=== PATIENT | female | born 1940 | race Caucasian/White ===

== ENCOUNTER 2017-01-03 09:50 | Inpatient (IN) | payer OTHER ==
--- NOTE | ~2017-01-03 | HP ---
History And Physical [place] [id number] [facility] [place]. [address] NAME: KOLTON KENYON : 42 STATUS : ADM IN LOCATED WITHIN [facility]#: [id number] AGE: 76 ADM/REG DATE : 01/03/17 MR#: [id number] REPORT SERV DATE: 01/03/17 DICTATED BY: DEMETRIS RAMOS DATE: 01/03/17 REPORT STATUS : Draft TRANSCRIBED BY: MODL DATE: 01/03/17 DATE OF ADMISSION: 01/03/2017 NEPHROLOGY HISTORY AND PHYSICAL INDICATION FOR ADMISSION: Hypoxemic hypercapnic respiratory failure. HISTORY OF PRESENT ILLNESS: Mrs. Kenyon is a 76-year-old female who was hospitalized at [facility] from 12/13/2016 through 01/02/2017. She presented with shortness of breath and peripheral edema and was found to have a large symptomatic pericardial effusion which required drainage. Her blood pressure remained somewhat low following the procedure and her kidney failure worsened from stage IV until she was declared end-stage renal disease. She was at dialysis at [facility] for her initial treatment on 01/03/2017, when she noted worsening shortness of breath and complained of chest discomfort. She had about 1 hour and 40 minutes of treatment and was sent to the emergency room at [facility]. Chest x-ray revealed what appeared to be consistent with pulmonary edema. Her white cell count was 19.1. Her ABG on blood gas revealed a pCO2 of 52, PO2 of 51, and pH of 7.32 on 2 L. She was subsequently placed on BiPAP and was transported to dialysis for more aggressive ultrafiltration. She denied any fever or chills at home. She did have a nonproductive cough. She reported only chest pain at the time of her dialysis and stated that the symptoms were fairly acute. Her troponin level was 0.09. Her BNP was 2222. Her lactate level was 1.2. PAST MEDICAL HISTORY: End-stage renal disease, newly initiated on an outpatient dialysis at [facility] on Monday, , Monday via right IJ PermCath. Recent pericardial effusion requiring drainage on 12/17/2016. Dysphagia requiring PEG tube placement on 12/27/2016. Mild aortic stenosis. Peripheral vascular disease with prior mesenteric stenting. Depression, type 2 diabetes mellitus, hypertension, hyperlipidemia, anxiety disorder, irritable bowel syndrome, fatty liver, peptic ulcer disease, and anemia. SOCIAL HISTORY: A 20-to-25 pack year smoking history. No use for many years. No alcohol or illicit drug use. 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 She has a supportive family. FAMILY HISTORY: Positive for gastrointestinal issues including peptic ulcer disease and irritable bowel syndrome. No end-stage renal disease. ALLERGIES: CODEINE; INAPSINE; COMPAZINE; REGLAN; PROTONIX; PRILOSEC; PREVACID; TAGAMET; MORPHINE; CIPROFLOXACIN; AND FLAGYL. HOME MEDICATIONS: Tylenol; Xanax; Artificial Tears; enteric-coated aspirin; Tenormin; Ziac; vitamin B12; enalapril; metformin; Nitrostat; Axid; omeprazole; Phenergan; Florastor; and tramadol. PAST SURGICAL HISTORY: Hysterectomy, bilateral oophorectomy, , appendectomy, and pericardial effusion requiring drainage. History And Physical [address] [place]. [address] NAME: KOLTON KENYON : 42 STATUS : ADM IN LOCATED WITHIN [facility]#: [id number] AGE: 76 ADM/REG DATE : 01/03/17 MR#: [id number] REPORT SERV DATE: 01/03/17 DICTATED BY: DEMETRIS RAMOS DATE: 01/03/17 REPORT STATUS : Draft TRANSCRIBED BY: MARK DATE: 01/03/17 REVIEW OF SYSTEMS: HEENT: No change in visual acuity. No epistaxis. No otic infection. No hemoptysis. PULMONARY: No shortness of breath. Dry cough. CARDIAC: Substernal chest pain. No edema. GI: No dysphagia. Presently fed by a PEG tube. No nausea, vomiting, or melena. : No gross hematuria. MUSCULOSKELETAL: Generalized weakness. No lateralizing weakness. Notes some pain in back. INTEGUMENT: No rash. No skin lesions. No itching. PHYSICAL EXAMINATION: VITAL SIGNS: Blood pressure 147/66, temperature 97.8, pulse 73, and respiratory rate 20. GENERAL: Elderly white female, on BiPAP, somewhat anxious. HEENT: Eyes, no scleral icterus. Pupils equal, reactive to light. Extraocular movement intact. Nares patent. No lesions. Throat, no injection. Mucous membranes moist. NECK: No thyromegaly, masses, or bruits. CHEST/LUNGS: Bilateral crackles. A few scattered wheezes. CARDIAC: Regular rate and rhythm. A 1/6 systolic ejection murmur. No rub. ABDOMEN: Supple. Normoactive bowel sounds. PEG tube in place. No hepatosplenomegaly. No masses. BREASTS: Exam not performed. PELVIC: Exam not performed. RECTAL: Exam not performed. EXTREMITIES: No calf tenderness. No lower extremity edema. DERMIS: No rash. No skin lesions. NEUROLOGIC: Cranial nerves intact. Moves all extremities. No lateralizing weakness. MUSCULOSKELETAL: No deformity. No joint tenderness. IMPRESSION: 1. Pulmonary edema with hypoxemic hypercapnic respiratory failure. 2. Chest pain. Evaluate for cardiac source. 3. New ESRD, to dialyze Monday, , and Monday at [facility] by right IJ PermCath. 4. Recent pericardial effusion, status post drainage. 5. Dysphagia status post PEG with PEG tube feedings. 6. Mild aortic stenosis. 7. Peripheral vascular disease, status post mesenteric stent. 8. Type 2 diabetes mellitus. 9. Anemia. PLAN: 1. Urgent dialysis. 2. Labs. 3. Pulmonary evaluation to assist with BiPAP. /MODL History And Physical [address] [address] NAME: KOLTON KENYON : 42 STATUS : ADM IN LOCATED WITHIN [facility]#: [id number] AGE: 76 ADM/REG DATE : 01/03/17 MR#: [id number] REPORT SERV DATE: 01/03/17 DICTATED BY: DEMETRIS RAMOS DATE: 01/03/17 REPORT STATUS : Draft TRANSCRIBED BY: MARK DATE: 01/03/17 Demetris Ramos M.D. / [id number] CC: Demetris Ramos M.D.
--- NOTE | ~2017-01-03 | CN ---
Consultation Report [facility] [address] [place]. [address] NAME: KOLTON KENYON : 42 STATUS : ADM IN PAT#: [id number] AGE: 76 ADM/REG DATE : 01/03/17 MR#: [id number] REPORT SERV DATE: 01/07/17 DICTATED BY: YARED TREADWELL DATE: 01/07/17 REPORT STATUS : Draft TRANSCRIBED BY: MODGary DATE: 01/07/17 DATE OF CONSULTATION: 01/07/2017 PRIMARY CHILD CARE DIRECTOR: None. REASON FOR CONSULTATION: N-STEMI. HISTORY OF PRESENT ILLNESS: Ms Kenyon is a 76-year-old female with a history of newly- diagnosed end-stage renal disease, on dialysis, mild aortic stenosis, mild biventricular systolic failure, diabetes, depression, hypertension, hyperlipidemia, and recent pericardial effusion that is status post a window, who presented to [facility] on January 03 with worsening shortness of breath, as well as chest discomfort. She experienced these symptoms during dialysis on 01/03. She was admitted here and during the interval time, has been getting dialysis, as well as optimized from a volume standpoint. Today during her dialysis session, she had recurrence of chest pain, as well as neck pain that was significant in intensity. Enzymes that were checked showed increase in her troponin from 0.09 up to 1.8. EKG at that time shows sinus bradycardia, LVH with repolarization changes and EKG from admission shows sinus rhythm with septal Q-waves, as well as probable ischemic anterolateral ST changes. PAST MEDICAL HISTORY: As above, as well as including peripheral vascular disease, status post mesenteric stenting, peptic ulcer disease, anemia, irritable bowel syndrome, anxiety, and dysphagia with a PEG tube. ALLERGIES: INCLUDE CODEINE, COMPAZINE, INAPSINE, REGLAN, PROTONIX, PREVACID, TAGAMET, MORPHINE, CIPRO, AND FLAGYL. FAMILY HISTORY: Significant for heart disease in her mother's family, details unknown. SOCIAL HISTORY: The patient lives at home with family. She is dependent on them. She has a history of smoking, but not currently. Denies drinking alcohol or smoking. HOME MEDICATIONS: 1. Tylenol. 2. Xanax. 3. Aspirin. 4. Atenolol. 5. Bisoprolol. 6. Vitamin B12. 7. Enalapril. 8. Metformin. 9. Nitroglycerin. 10.Axid. 11.Prilosec. 12.Phenergan. Consultation Report [place] [address] [place]. [address] NAME: KOLTON KENYON : 42 STATUS : ADM IN PAT#: [id number] AGE: 76 ADM/REG DATE : 01/03/17 MR#: [id number] REPORT SERV DATE: 01/07/17 DICTATED BY: YARED TREADWELL DATE: 01/07/17 REPORT STATUS : Draft TRANSCRIBED BY: MARK DATE: 01/07/17 13.Nasal spray. REVIEW OF SYSTEMS: As above, all other systems otherwise negative. PHYSICAL EXAMINATION: VITAL SIGNS: Blood pressure 115/48, pulse 44, temperature 97.6. GENERAL: No acute distress, age appropriate. NEURO: No focal deficits. Oriented x3. Lucid. HEAD AND NECK: Normocephalic, atraumatic. Dry mucous membranes. RESPIRATORY: Normal work of breathing. Positive for rales bilaterally. No wheezes or rhonchi. CARDIAC: Bradycardic. Regular. Normal S1, S2. 3/6 systolic murmur throughout the precordium. ABDOMEN: Soft, nontender, nondistended. No rebound or guarding. EXTREMITIES: Warm and dry. No edema. SKIN: Grossly intact. No obvious active rash. LABORATORY DATA: Pertinent test findings include potassium 3.9. GFR 13. White blood cell count 9.5, hemoglobin 9.6. Troponin 0.09 from 01/03 and now 1.83. Magnesium 2.5. EKG with sinus bradycardia, LVH, repolarization abnormalities, and Q-waves in the septal leads. IMPRESSION AND PLAN: Ms Kenyon is a 76-year-old female with many comorbidities including end-stage renal disease, on hemodialysis and peripheral vascular disease, status post mesenteric stent, as well as diabetes, hypertension, and hyperlipidemia, who had recurrent chest and neck pains during dialysis today, found to have an increase in her cardiac enzymes, as result of non-ST elevation myocardial infarction. Accordingly, I have the following recommendations by problem below: 1. N-ST elevation myocardial infarction-I spoke with her at length regarding my recommendations to proceed with cardiac catheterization with possible percutaneous coronary intervention in light of her electrocardiographic findings, as well as her cardiac enzymes and symptoms. Understanding the risks of not proceeding with an invasive strategy, including but not limited to, worsening heart failure, myocardial infarction, , stroke, or arrhythmia, she has decided to not pursue invasive strategy. She has indicated that she does not want to have a cardiac catheterization at this time. She would like to be medically managed only. Accordingly, I recommend that she be continued on aspirin, statin, starting on Plavix if possible, and maintain on a heparin drip with renal dosing over the next two days. She has baseline bradycardia that may be a result of residual beta-mario in her system (atenolol), currently precluding further beta-mario therapy. Check an echocardiogram on Monday. 2. Peripheral vascular disease, status post mesenteric stenting-aspirin and statin as written. 3. End-stage renal disease, on hemodialysis-per Renal. Stable. Consultation Report [place] [id number] [facility] [place]. [address] NAME: KOLTON KENYON : 42 STATUS : ADM IN PAT#: [id number] AGE: 76 ADM/REG DATE : 01/03/17 MR#: [id number] REPORT SERV DATE: 01/07/17 DICTATED BY: YARED TREADWELL DATE: 01/07/17 REPORT STATUS : Draft TRANSCRIBED BY: MARK DATE: 01/07/17 4. Hypertension-controlled. VR/MARK Yraed Treadwell MD / [id number] CC: Pranav Beth M.D.
--- NOTE | ~2017-01-03 | DS ---
Discharge Summary [facility] [address] [place]. [address] NAME: KOLTON MORRIS : 42 STATUS : DIS IN PAT#: [id number] AGE: 76 ADM/REG DATE : 01/03/17 MR#: [id number] REPORT SERV DATE: 01/20/17 DICTATED BY: DEMETRIS RAMSO DATE: 01/19/17 REPORT STATUS : Draft TRANSCRIBED BY: MARK DATE: 01/19/17 Data Collection from hospitalization DISCHARGE DIAGNOSES: 1. Inoperable mitral valve coronary artery disease. 2. Gna-SS-ppwikodzo myocardial infarction. 3. End-stage renal disease. 4. Type 2 diabetes mellitus. 5. Peripheral vascular disease. 6. Hypertension. 7. Anemia. 8. Anxiety disorder. 9. Irritable bowel syndrome. 10.Fatty liver. 11.Peptic ulcer disease. 12.Hyperlipidemia. 13.Depression. CONSULTATIONS: Yared Mcgee MD. PROCEDURES PERFORMED: Cardiac catheterization, 01/13/2017. DISCHARGE MEDICATIONS: Nitrol ointment one inch topically every six hours as needed, Zofran injection 4 mg IV every four hours as needed, Catapres 0.1 mg as needed, Dilaudid 0.2 mg IV/subcutaneously as instructed, Ativan 0.5 mg every six hours and every four hours as needed, Lasix 20 mg IV/subcutaneously daily as needed for fluid overload, and Dulcolax 10 mg per rectum every 72 hours as needed for no bowel movement. CONDITION ON DISCHARGE: Stable. DISPOSITION: The patient was discharged to the [facility] facility. HOSPITAL COURSE: This is a 76-year-old female, who had been hospitalized at [facility] from 12/13/2016 through 01/02/2017. She presented with shortness of breath and peripheral edema, was found to have a large symptomatic pericardial effusion which required drainage. Her blood pressure remained somewhat low following the procedure, and her kidney failure worsened from stage IV until she was declared end-stage renal disease. She was at dialysis at [facility] for her initial treatment on 01/03/2017 when she developed worsening shortness of breath and complained of chest discomfort. She had about 1 hour and 40 minutes of treatment and was sent to the emergency room at [facility]. Chest x-ray revealed what appeared to be consistent with pulmonary edema. White blood cell count was 19.1. She was placed on BiPAP and transported to dialysis for more aggressive ultrafiltration. Her troponin level was 0.09. BNP was 2222. She had a nonproductive cough. Her lactate level was 1.2. She was admitted to the hospital for further evaluation and treatment. Upon admission, urgent dialysis therapy was performed. The following day, she was alert and responsive, her breathing was much improved. On 01/05/2017, her breathing was comfortable. Her white count was 8.8. She was transferred to the floor. Hemodialysis therapy continued. Discharge Summary [place] [id number] [facility] [place]. [address] NAME: KOLTON MORRIS : 42 STATUS : DIS IN PAT#: [id number] AGE: 76 ADM/REG DATE : 01/03/17 MR#: [id number] REPORT SERV DATE: 01/20/17 DICTATED BY: DEMETRIS RAMOS DATE: 01/19/17 REPORT STATUS : Draft TRANSCRIBED BY: MARK DATE: 01/19/17 On the 3rd, she had no edema, her abdomen was soft and nontender. She had good pain control. She had a normal respiratory effort. She was evaluated by Physical Therapy. On the 4th, she developed chest pain during hemodialysis, troponin had increased from 0.09 to 1.83. She was seen by Dr. Yared Mcgee regarding pbc-OM-btxfesewp myocardial infarction. She has had recurrence of chest pain during dialysis as well as neck pain that was significant in intensity. Enzymes were checked and showed increase in her troponin from 0.09 up to 1.8. Her EKG showed sinus bradycardia, left ventricular hypertrophy with repolarization changes, and EKG from admission shows sinus rhythm with septal Q-waves as well as probable ischemic anterolateral ST changes. She was felt to have had a non-ST- elevation myocardial infarction, it was felt that she should undergo a cardiac catheterization. She indicated she did not want a cardiac catheterization at this time and wanted to be medically managed. Accordingly, he recommended that she be continued on aspirin, statin, and started on Plavix if possible and maintain on heparin drip with renal dosing over the next few days. She has baseline bradycardia that may be a result of residual beta-mario in her system which was atenolol which currently precluded further beta-mario therapy. An echocardiogram was requested. She has peripheral vascular disease and is status post mesenteric stenting, aspirin and statin agents were continued, her blood pressure was controlled. On 01/08/2017, she had no chest pain, nausea, or vomiting. Her enzymes were trending down. She was still on a heparin drip, blood pressure was controlled. The next day, she had some nausea, she had no dizziness or lightheadedness, heparin was discontinued. She did complain of some reflux. Occupational and Physical Therapy again evaluated the patient. She continued to undergo hemodialysis therapy over the next couple of days. On the , she had some chest pain and she complained of being tired. Troponin was still elevated. If she was having cardiac events with hemodialysis, she would not be a hemodialysis candidate unless something fixable. She would not agree to cardiac catheterization at this time. Palliative care was going to be consulted. The following day, she again had recurrent angina with hemodialysis, she now wanted to proceed with cardiac catheterization. On 01/13/2017, she was taken to the cardiac laborer [facility] where she underwent the above-mentioned procedure by Dr. Mills, she tolerated this well, and there were no complications. She had severe calcific multi-vessel coronary artery disease not amenable to percutaneous coronary intervention. 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 She had volume overload with left ventricular end-diastolic pressure of 26 to 28 mmHg. It was felt that hospice/palliative care would be appropriate. She remained lethargic. She is a DNR code status. No further hemodialysis therapy would be performed. A [facility] liaison met with the patient and reviewed hospice care. The patient was in agreement with comfort care at this time. Discharge instructions were given, and the patient was transferred to the [facility] with the above-stated instructions. Information collected by: Lucy Swanson I submit the above information as my discharge summary. TG/MODL Discharge Summary [place] [address] [facility] [place]. [address] NAME: KOLTON MORRIS : 42 STATUS : DIS IN PAT#: [id number] AGE: 76 ADM/REG DATE : 01/03/17 MR#: [id number] REPORT SERV DATE: 01/20/17 DICTATED BY: DEMETRIS RAMOS DATE: 01/19/17 REPORT STATUS : Draft TRANSCRIBED BY: MODL DATE: 01/19/17 Demetris Ramos M.D. / [id number] CC: Andie Koehler M.D. Bruce Johnson, M.D. Vimal Ramjee, MD
[~2017-01-03 09:50] MED LIST: ACET500CAP PO; ANASPAZ0.125 MG PO; ATEN100 PO; AXID150 MG PO; B121000P IM; GLUCPH PO; HALF81 PO; JANUMET XR 1001 EACH PO; MCZ25 PO; MYLUD PO; NEXIUM40 PO; NITROSTAT0.4 MG SL; NIZATIDINE PO; NORV10 PO; OCEAN NAS; PEPTO-BISM524 MG/30 PO; PR25 PO; PRILO PO; PRILOSEC40 MG PO; SYMAX-SR0.375 MG; TEARS NATURA OPH; TEARS PLUS OPH; ULTRAM50 PO; VASOTEC10 PO; X5 PO; ZIAC2 PO
[2017-01-03 10:08] LABS: BE (BASE EXCESS) 0.1 MEQ/L (0 +/- 2.5); CARBOXYHEMOGLOBIN 1.1 % (0-3); DEVICE NC; HCO3 (ACTUAL BICARBONATE) 26.7 MEQ/L (23-27); INSTRUMENT SERIAL # 8087; METHEMOGLOBIN 0.4 % (0-3); O2 CONTENT 12.5 VOL% (18-24); OPERATOR ID 35188; PCO2 (CO2 TENSION) 52 MMHG (35-45); PO2 (O2 TENSION) 51 MMHG (79-93); SAMPLE Arterial; pH 7.33 (7.37-7.43)
[2017-01-03 10:09] LABS: ALLENS TEST Pos
[2017-01-03 10:33] LABS: BASOPHILS 0.4 %; BASOPHILS ABSOLUTE 0.08 10/3/uL (0.0-0.16); EOSINOPHILS 1.4 %; EOSINOPHILS ABSOLUTE 0.26 10/3/uL (0.0-0.53); HEMOGLOBIN 9.7 g/dL (12.0-16.0); IMMATURE GRANULOCYTES 1.5 %; LYMPHOCYTES 8.6 %; LYMPHOCYTES ABSOLUTE 1.64 10/3/uL (0.67-4.30); MEAN CORPUS HGB CONC 31.2 g/dL (32.0-36.0); MEAN CORPUSCULAR VOLUME 76.8 fL (80-100); MEAN PLATELET VOLUME 10.9 fL (9.2-13.0); MONOCYTES 4.2 %; NEUTROPHILS 83.9 %; NEUTROPHILS ABSOLUTE 16.01 10/3/uL (2.02-8.40); RBC DISTRIBUTION WIDTH 17.2 % (12.0-16.0); RED CELL COUNT 4.05 10/6/uL (4.0-5.6)
[2017-01-03 10:34] LABS: ER CBC TAT 0 Hrs 15 Mins; HEMATOCRIT 31.1 % (36.0-48.0); IMMATURE GRANULOCYTES ABSOLUTE 0.29 10/3/uL (0.0-0.11); MANUAL DIFF NO %; PLATELET COUNT 328 10/3/uL (150-400); WHITE BLOOD CELLS 19.1 10/3/uL (4.5-10.5)
[2017-01-03 10:39] LABS: INTERNATIONAL NORMAL RATI 1.2 UNITS (-); PROTIME (NOT ORD) 15.5 SEC (12.0-14.5)
[2017-01-03 10:40] LABS: PARTIAL THROMBO TIME 29.6 SEC (22.5-37.2)
[2017-01-03 10:41] LABS: BUN (BLOOD UREA NITROGEN) 34 MG/DL (6-23); CALCIUM, SERUM 8.8 MG/DL (8.5-10.4); CHLORIDE, SERUM 97 MMOL/L (96-112); CO2 (CARBON DIOXIDE) 27 MMOL/L (24-34); CREATININE 2.82 MG/DL (0.55-1.02); GFR AFRICAN AMERICAN 18 ML/MIN (>=60); GFR NON AFRICAN AMERICAN 16 ML/MIN (>=60); GLUCOSE, SERUM 187 MG/DL (60-99); POTASSIUM, SERUM 4.3 MMOL/L (3.5-5.3); SODIUM, SERUM 135 MMOL/L (135-148)
[2017-01-03 10:42] LABS: CHEST PAIN PROFILE TAT 0 Hrs 23 Mins; TROPONIN I 0.09 NG/ML (<0.05)
[2017-01-03 10:58] LABS: ANISOCYTOSIS 1+ (5-10/OIF) (0-5/OIF); BAND NEUTROPHILS 7 %; BASOPHILS 1 %; BASOPHILS ABSOLUTE (CALC) 0.19 10/3/uL (0.0-0.16); EOSINOPHILS 2 %; EOSINOPHILS ABSOLUTE (CALC) 0.38 10/3/uL (0.0-0.53); ER DIFF TAT 0 Hrs 39 Mins; HYPOCHROMIA 1+ (3-10/OIF) (0-2/OIF); IMMATURE GRANS ABSOLUTE (CALC) 0.38 10/3/uL (0.0-0.11); LYMPHOCYTES 4 %; LYMPHOCYTES ABSOLUTE (CALC) 0.76 10/3/uL (0.67-4.30); METAMYELOCYTES 1 %; MICROCYTES 1+ (5-10/OIF) (0-5/OIF); MONOCYTES 4 %; MONOCYTES ABSOLUTE (CALC) 0.76 10/3/uL (0.21-1.20); MYELOCYTES 1 %; NEUTROPHILS ABSOLUTE (CALC) 16.62 10/3/uL (2.02-8.40); PLATELET ESTIMATE ADQ (ADEQUATE); SEGMENTED NEUTROPHIL (0) 80 %; TOTAL NUCLEATED CELLS 100
[2017-01-03 11:09] LABS: ALLENS TEST Pos; BE (BASE EXCESS) -0.1 MEQ/L (0 +/- 2.5); DEVICE NC; HCO3 (ACTUAL BICARBONATE) 27.3 MEQ/L (23-27); HEMOBLOGIN CONTENT 10.9 G/DL (12-16); INSTRUMENT SERIAL # 8087; METHEMOGLOBIN 0.4 % (0-3); O2 CONTENT 13.7 VOL% (18-24); OPERATOR ID 35188; PCO2 (CO2 TENSION) 58 MMHG (35-45); PO2 (O2 TENSION) 67 MMHG (79-93); SAMPLE Arterial; pH 7.29 (7.37-7.43)
[2017-01-03] MEDS ORDERED: ACET500CAP PO (12:09)
[2017-01-03] MEDS ORDERED: X5 PO (12:09)
[2017-01-03] MEDS ORDERED: ATEN100 PO (12:10)
[2017-01-03] MEDS ORDERED: HALF81 PO (12:10)
[2017-01-03] MEDS ORDERED: TEARS PLUS OPH (12:10)
[2017-01-03] MEDS ORDERED: ZIAC2 PO (12:11)
[2017-01-03] MEDS ORDERED: FLORASTOR250 MG PO (12:11)
[2017-01-03] MEDS ORDERED: GLUCPH PO (12:13)
[2017-01-03] MEDS ORDERED: NITROSTAT0.4 MG SL (12:13)
[2017-01-03] MEDS ORDERED: VASOTEC10 PO (12:13)
[2017-01-03] MEDS ORDERED: B121000P IM (12:13)
[2017-01-03] MEDS ORDERED: PR25 PO (12:14)
[2017-01-03] MEDS ORDERED: PRILOSEC40 MG PO (12:14)
[2017-01-03] MEDS ORDERED: ULTRAM50 PO (12:15)
[2017-01-03] MEDS ORDERED: OCEAN NAS (12:15)
[2017-01-03] MEDS ORDERED: AXID150 MG PO (12:16)
[2017-01-03 13:27] LABS: LACTATE 1.2 MMOL/L (0.3-2.4)
[2017-01-03 18:07] LABS: ALLENS TEST Pos; BIPAP 14/6 cm.H2O; CARBOXYHEMOGLOBIN 0.5 % (0-3); HCO3 (ACTUAL BICARBONATE) 26.7 MEQ/L (23-27); HEMOBLOGIN CONTENT 10.5 G/DL (12-16); INSTRUMENT SERIAL # 8083; METHEMOGLOBIN 0.3 % (0-3); O2 CONTENT 14.9 VOL% (18-24); PCO2 (CO2 TENSION) 42 MMHG (35-45); PO2 (O2 TENSION) 171 MMHG (79-93); SAMPLE Arterial; pH 7.42 (7.37-7.43)
[2017-01-04 05:47] LABS: BASOPHILS 0.8 %; BASOPHILS ABSOLUTE 0.08 10/3/uL (0.0-0.16); EOSINOPHILS 0.9 %; EOSINOPHILS ABSOLUTE 0.09 10/3/uL (0.0-0.53); HEMATOCRIT 28.6 % (36.0-48.0); HEMOGLOBIN 8.8 g/dL (12.0-16.0); IMMATURE GRANULOCYTES 1.1 %; IMMATURE GRANULOCYTES ABSOLUTE 0.11 10/3/uL (0.0-0.11); LYMPHOCYTES 15.8 %; LYMPHOCYTES ABSOLUTE 1.52 10/3/uL (0.67-4.30); MEAN CORPUS HGB CONC 30.8 g/dL (32.0-36.0); MEAN CORPUSCULAR HEMOGLOB 24.5 pg (26.0-34.0); MEAN PLATELET VOLUME 10.9 fL (9.2-13.0); MONOCYTES 8.2 %; MONOCYTES ABSOLUTE 0.79 10/3/uL (0.21-1.20); NEUTROPHILS 73.2 %; NEUTROPHILS ABSOLUTE 7.06 10/3/uL (2.02-8.40); PLATELET COUNT 251 10/3/uL (150-400); RED CELL COUNT 3.59 10/6/uL (4.0-5.6)
[2017-01-04 05:48] LABS: MANUAL DIFF NO %; MEAN CORPUSCULAR VOLUME 79.7 fL (80-100); WHITE BLOOD CELLS 9.7 10/3/uL (4.5-10.5)
[2017-01-04 06:09] LABS: BUN (BLOOD UREA NITROGEN) 31 MG/DL (6-23); CALCIUM, SERUM 8.6 MG/DL (8.5-10.4); CHLORIDE, SERUM 98 MMOL/L (96-112); CO2 (CARBON DIOXIDE) 27 MMOL/L (24-34); CREATININE 2.86 MG/DL (0.55-1.02); GFR AFRICAN AMERICAN 18 ML/MIN (>=60); GFR NON AFRICAN AMERICAN 15 ML/MIN (>=60); POTASSIUM, SERUM 4.5 MMOL/L (3.5-5.3); SODIUM, SERUM 135 MMOL/L (135-148)
[2017-01-04 06:12] LABS: ALBUMIN 3.5 G/DL (3.5-5.0); GLUCOSE, SERUM 113 MG/DL (60-99); PHOSPHORUS, SERUM 3.7 MG/DL (2.5-4.5)
[2017-01-04 06:50] LABS: PROCALCITONIN 1.63 ng/mL (<0.5)
[2017-01-04 11:14] LABS: A/G RATIO 0.8 (0.7-1.9); GLOBULIN 4.6 G/DL (2.5-4.1); PREALBUMIN 24.7 MG/DL (17.0-43.0); SGOT(AST) 46 U/L (5-40); SGPT(ALT) 34 U/L (5-65); TOTAL PROTEIN 8.1 G/DL (6.0-8.5)
[2017-01-04 11:18] LABS: ALKALINE PHOSPHATASE 87 U/L (45-117); TOTAL BILIRUBIN 0.6 MG/DL (0-1.2)
[2017-01-05 04:27] LABS: BASOPHILS 0.9 %; BASOPHILS ABSOLUTE 0.08 10/3/uL (0.0-0.16); EOSINOPHILS 2.2 %; EOSINOPHILS ABSOLUTE 0.19 10/3/uL (0.0-0.53); HEMATOCRIT 27.9 % (36.0-48.0); HEMOGLOBIN 8.6 g/dL (12.0-16.0); IMMATURE GRANULOCYTES 0.7 %; IMMATURE GRANULOCYTES ABSOLUTE 0.06 10/3/uL (0.0-0.11); LYMPHOCYTES 20.4 %; LYMPHOCYTES ABSOLUTE 1.79 10/3/uL (0.67-4.30); MEAN CORPUS HGB CONC 30.8 g/dL (32.0-36.0); MEAN CORPUSCULAR HEMOGLOB 24.1 pg (26.0-34.0); MEAN CORPUSCULAR VOLUME 78.2 fL (80-100); MEAN PLATELET VOLUME 10.9 fL (9.2-13.0); MONOCYTES 9.1 %; NEUTROPHILS 66.7 %; NEUTROPHILS ABSOLUTE 5.86 10/3/uL (2.02-8.40); PLATELET COUNT 271 10/3/uL (150-400); RBC DISTRIBUTION WIDTH 16.8 % (12.0-16.0); RED CELL COUNT 3.57 10/6/uL (4.0-5.6); WHITE BLOOD CELLS 8.8 10/3/uL (4.5-10.5)
[2017-01-05 04:37] LABS: MANUAL DIFF NO %
[2017-01-05 05:11] LABS: ALBUMIN 3.4 G/DL (3.5-5.0); BUN (BLOOD UREA NITROGEN) 58 MG/DL (6-23); CHLORIDE, SERUM 96 MMOL/L (96-112); CO2 (CARBON DIOXIDE) 25 MMOL/L (24-34); CREATININE 4.42 MG/DL (0.55-1.02); GFR AFRICAN AMERICAN 11 ML/MIN (>=60); GFR NON AFRICAN AMERICAN 9 ML/MIN (>=60); GLUCOSE, SERUM 116 MG/DL (60-99); PHOSPHORUS, SERUM 5.9 MG/DL (2.5-4.5); POTASSIUM, SERUM 4.9 MMOL/L (3.5-5.3); SODIUM, SERUM 132 MMOL/L (135-148)
[2017-01-06 06:27] LABS: BASOPHILS 0.6 %; BASOPHILS ABSOLUTE 0.06 10/3/uL (0.0-0.16); EOSINOPHILS 2.1 %; HEMATOCRIT 30.6 % (36.0-48.0); HEMOGLOBIN 9.6 g/dL (12.0-16.0); IMMATURE GRANULOCYTES 0.6 %; IMMATURE GRANULOCYTES ABSOLUTE 0.06 10/3/uL (0.0-0.11); LYMPHOCYTES 17.7 %; LYMPHOCYTES ABSOLUTE 1.68 10/3/uL (0.67-4.30); MEAN CORPUS HGB CONC 31.4 g/dL (32.0-36.0); MEAN CORPUSCULAR HEMOGLOB 24.7 pg (26.0-34.0); MEAN CORPUSCULAR VOLUME 78.9 fL (80-100); MEAN PLATELET VOLUME 10.8 fL (9.2-13.0); MONOCYTES 8.5 %; MONOCYTES ABSOLUTE 0.81 10/3/uL (0.21-1.20); NEUTROPHILS 70.5 %; PLATELET COUNT 252 10/3/uL (150-400); RBC DISTRIBUTION WIDTH 16.5 % (12.0-16.0); RED CELL COUNT 3.88 10/6/uL (4.0-5.6); WHITE BLOOD CELLS 9.5 10/3/uL (4.5-10.5)
[2017-01-06 06:31] LABS: MANUAL DIFF NO %
[2017-01-06 06:41] LABS: ALBUMIN 3.3 G/DL (3.5-5.0); BUN (BLOOD UREA NITROGEN) 46 MG/DL (6-23); CALCIUM, SERUM 8.8 MG/DL (8.5-10.4); CHLORIDE, SERUM 94 MMOL/L (96-112); CO2 (CARBON DIOXIDE) 26 MMOL/L (24-34); CREATININE 3.69 MG/DL (0.55-1.02); GFR AFRICAN AMERICAN 13 ML/MIN (>=60); GFR NON AFRICAN AMERICAN 11 ML/MIN (>=60); GLUCOSE, SERUM 129 MG/DL (60-99); PHOSPHORUS, SERUM 4.8 MG/DL (2.5-4.5); POTASSIUM, SERUM 3.9 MMOL/L (3.5-5.3); SODIUM, SERUM 134 MMOL/L (135-148)
[2017-01-07 09:00] LABS: BASOPHILS 0.5 %; BASOPHILS ABSOLUTE 0.05 10/3/uL (0.0-0.16); EOSINOPHILS 2.7 %; EOSINOPHILS ABSOLUTE 0.29 10/3/uL (0.0-0.53); HEMATOCRIT 29.8 % (36.0-48.0); HEMOGLOBIN 9.4 g/dL (12.0-16.0); IMMATURE GRANULOCYTES 0.4 %; IMMATURE GRANULOCYTES ABSOLUTE 0.04 10/3/uL (0.0-0.11); LYMPHOCYTES 16.6 %; MEAN CORPUS HGB CONC 31.5 g/dL (32.0-36.0); MEAN PLATELET VOLUME 10.7 fL (9.2-13.0); MONOCYTES 10.8 %; MONOCYTES ABSOLUTE 1.17 10/3/uL (0.21-1.20); NEUTROPHILS ABSOLUTE 7.51 10/3/uL (2.02-8.40); PLATELET COUNT 264 10/3/uL (150-400); RBC DISTRIBUTION WIDTH 16.5 % (12.0-16.0); RED CELL COUNT 3.91 10/6/uL (4.0-5.6); WHITE BLOOD CELLS 10.9 10/3/uL (4.5-10.5)
[2017-01-07 09:02] LABS: MANUAL DIFF NO %; MEAN CORPUSCULAR VOLUME 76.2 fL (80-100)
[2017-01-07 09:08] LABS: ALBUMIN 3.3 G/DL (3.5-5.0); CALCIUM, SERUM 8.6 MG/DL (8.5-10.4); CHLORIDE, SERUM 88 MMOL/L (96-112); CO2 (CARBON DIOXIDE) 26 MMOL/L (24-34); GLUCOSE, SERUM 136 MG/DL (60-99); POTASSIUM, SERUM 3.9 MMOL/L (3.5-5.3); SODIUM, SERUM 129 MMOL/L (135-148)
[2017-01-07 09:10] LABS: BUN (BLOOD UREA NITROGEN) 83 MG/DL (6-23); CREATININE 5.33 MG/DL (0.55-1.02); GFR AFRICAN AMERICAN 8 ML/MIN (>=60); GFR NON AFRICAN AMERICAN 7 ML/MIN (>=60); PHOSPHORUS, SERUM 5.9 MG/DL (2.5-4.5)
[2017-01-07 10:02] LABS: TROPONIN I 1.83 NG/ML (<0.05)
[2017-01-07 15:22] LABS: INTERNATIONAL NORMAL RATI 1.2 UNITS (-); PARTIAL THROMBO TIME 28.1 SEC (22.5-37.2); PROTIME (NOT ORD) 14.9 SEC (12.0-14.5)
[2017-01-08 03:12] LABS: BASOPHILS 0.4 %; BASOPHILS ABSOLUTE 0.04 10/3/uL (0.0-0.16); EOSINOPHILS 2.1 %; EOSINOPHILS ABSOLUTE 0.24 10/3/uL (0.0-0.53); HEMOGLOBIN 9.6 g/dL (12.0-16.0); IMMATURE GRANULOCYTES 0.4 %; IMMATURE GRANULOCYTES ABSOLUTE 0.05 10/3/uL (0.0-0.11); LYMPHOCYTES 16.3 %; LYMPHOCYTES ABSOLUTE 1.83 10/3/uL (0.67-4.30); MANUAL DIFF NO %; MEAN CORPUSCULAR HEMOGLOB 25.1 pg (26.0-34.0); MEAN CORPUSCULAR VOLUME 78.3 fL (80-100); MEAN PLATELET VOLUME 11.1 fL (9.2-13.0); MONOCYTES 11.2 %; MONOCYTES ABSOLUTE 1.26 10/3/uL (0.21-1.20); NEUTROPHILS 69.6 %; PLATELET COUNT 213 10/3/uL (150-400); RBC DISTRIBUTION WIDTH 16.7 % (12.0-16.0); RED CELL COUNT 3.83 10/6/uL (4.0-5.6); WHITE BLOOD CELLS 11.2 10/3/uL (4.5-10.5)
[2017-01-08 03:28] LABS: ALBUMIN 3.7 G/DL (3.5-5.0); CALCIUM, SERUM 8.8 MG/DL (8.5-10.4); CO2 (CARBON DIOXIDE) 26 MMOL/L (24-34); GLUCOSE, SERUM 137 MG/DL (60-99); POTASSIUM, SERUM 4.2 MMOL/L (3.5-5.3)
[2017-01-08 03:29] LABS: BUN (BLOOD UREA NITROGEN) 49 MG/DL (6-23); CHLORIDE, SERUM 99 MMOL/L (96-112); CREATININE 3.64 MG/DL (0.55-1.02); GFR AFRICAN AMERICAN 13 ML/MIN (>=60); GFR NON AFRICAN AMERICAN 12 ML/MIN (>=60); PHOSPHORUS, SERUM 3.2 MG/DL (2.5-4.5); SODIUM, SERUM 136 MMOL/L (135-148)
[2017-01-09 06:55] LABS: BASOPHILS 0.4 %; BASOPHILS ABSOLUTE 0.05 10/3/uL (0.0-0.16); EOSINOPHILS 2.8 %; EOSINOPHILS ABSOLUTE 0.32 10/3/uL (0.0-0.53); HEMOGLOBIN 9.7 g/dL (12.0-16.0); IMMATURE GRANULOCYTES 0.4 %; IMMATURE GRANULOCYTES ABSOLUTE 0.05 10/3/uL (0.0-0.11); LYMPHOCYTES 15.6 %; LYMPHOCYTES ABSOLUTE 1.76 10/3/uL (0.67-4.30); MEAN CORPUS HGB CONC 32.3 g/dL (32.0-36.0); MEAN CORPUSCULAR HEMOGLOB 24.8 pg (26.0-34.0); MEAN CORPUSCULAR VOLUME 76.7 fL (80-100); MONOCYTES 10.1 %; MONOCYTES ABSOLUTE 1.14 10/3/uL (0.21-1.20); NEUTROPHILS 70.7 %; NEUTROPHILS ABSOLUTE 7.96 10/3/uL (2.02-8.40); PLATELET COUNT 190 10/3/uL (150-400); RBC DISTRIBUTION WIDTH 16.8 % (12.0-16.0); RED CELL COUNT 3.91 10/6/uL (4.0-5.6); WHITE BLOOD CELLS 11.3 10/3/uL (4.5-10.5)
[2017-01-09 06:58] LABS: MANUAL DIFF NO %
[2017-01-09 07:01] LABS: PARTIAL THROMBO TIME 92.2 SEC (22.5-37.2)
[2017-01-09 07:10] LABS: A/G RATIO 0.8 (0.7-1.9); ALBUMIN 3.3 G/DL (3.5-5.0); ALKALINE PHOSPHATASE 86 U/L (45-117); CALCIUM, SERUM 9.3 MG/DL (8.5-10.4); CO2 (CARBON DIOXIDE) 25 MMOL/L (24-34); GLOBULIN 4.3 G/DL (2.5-4.1); GLUCOSE, SERUM 139 MG/DL (60-99); POTASSIUM, SERUM 4.5 MMOL/L (3.5-5.3); SGOT(AST) 18 U/L (5-40); SGPT(ALT) 16 U/L (5-65); TOTAL BILIRUBIN 0.5 MG/DL (0-1.2); TOTAL PROTEIN 7.6 G/DL (6.0-8.5)
[2017-01-09 07:11] LABS: BUN (BLOOD UREA NITROGEN) 87 MG/DL (6-23); CHLORIDE, SERUM 86 MMOL/L (96-112); CREATININE 5.27 MG/DL (0.55-1.02); GFR AFRICAN AMERICAN 9 ML/MIN (>=60); GFR NON AFRICAN AMERICAN 7 ML/MIN (>=60); PHOSPHORUS, SERUM 4.9 MG/DL (2.5-4.5); SODIUM, SERUM 127 MMOL/L (135-148)
[2017-01-09 07:18] LABS: PREALBUMIN 28.4 MG/DL (17.0-43.0)
[2017-01-10 08:33] LABS: BASOPHILS 0.2 %; BASOPHILS ABSOLUTE 0.03 10/3/uL (0.0-0.16); EOSINOPHILS 2.8 %; EOSINOPHILS ABSOLUTE 0.35 10/3/uL (0.0-0.53); HEMATOCRIT 28.4 % (36.0-48.0); HEMOGLOBIN 9.4 g/dL (12.0-16.0); IMMATURE GRANULOCYTES 0.3 %; IMMATURE GRANULOCYTES ABSOLUTE 0.04 10/3/uL (0.0-0.11); LYMPHOCYTES 19.7 %; LYMPHOCYTES ABSOLUTE 2.47 10/3/uL (0.67-4.30); MEAN CORPUS HGB CONC 33.1 g/dL (32.0-36.0); MEAN CORPUSCULAR HEMOGLOB 24.2 pg (26.0-34.0); MEAN PLATELET VOLUME 10.7 fL (9.2-13.0); MONOCYTES 6.3 %; MONOCYTES ABSOLUTE 0.79 10/3/uL (0.21-1.20); NEUTROPHILS 70.7 %; NEUTROPHILS ABSOLUTE 8.85 10/3/uL (2.02-8.40); PLATELET COUNT 195 10/3/uL (150-400); RBC DISTRIBUTION WIDTH 16.9 % (12.0-16.0); RED CELL COUNT 3.88 10/6/uL (4.0-5.6); WHITE BLOOD CELLS 12.5 10/3/uL (4.5-10.5)
[2017-01-10 08:34] LABS: MANUAL DIFF NO %; MEAN CORPUSCULAR VOLUME 73.2 fL (80-100)
[2017-01-10 08:42] LABS: ALBUMIN 3.3 G/DL (3.5-5.0); BUN (BLOOD UREA NITROGEN) 108 MG/DL (6-23); CALCIUM, SERUM 9.3 MG/DL (8.5-10.4); CHLORIDE, SERUM 82 MMOL/L (96-112); CO2 (CARBON DIOXIDE) 25 MMOL/L (24-34); POTASSIUM, SERUM 4.7 MMOL/L (3.5-5.3); SODIUM, SERUM 125 MMOL/L (135-148)
[2017-01-10 08:43] LABS: GFR AFRICAN AMERICAN 7 ML/MIN (>=60); GFR NON AFRICAN AMERICAN 6 ML/MIN (>=60); GLUCOSE, SERUM 111 MG/DL (60-99); PHOSPHORUS, SERUM 6.2 MG/DL (2.5-4.5); TROPONIN I 0.22 NG/ML (<0.05)
[2017-01-10 08:56] LABS: PLATELET ESTIMATE ADQ (ADEQUATE)
[2017-01-10 16:57] LABS: CPK 31 U/L (0-200)
[2017-01-10 16:59] LABS: CK-MB 2.2 NG/ML; TROPONIN I 0.17 NG/ML (<0.05)
[2017-01-11 01:22] LABS: CPK 29 U/L (0-200)
[2017-01-11 01:26] LABS: TROPONIN I 0.15 NG/ML (<0.05)
[2017-01-11 05:59] LABS: BASOPHILS 0.1 %; BASOPHILS ABSOLUTE 0.01 10/3/uL (0.0-0.16); EOSINOPHILS 2.7 %; EOSINOPHILS ABSOLUTE 0.21 10/3/uL (0.0-0.53); HEMATOCRIT 26.2 % (36.0-48.0); HEMOGLOBIN 8.4 g/dL (12.0-16.0); IMMATURE GRANULOCYTES 0.1 %; IMMATURE GRANULOCYTES ABSOLUTE 0.01 10/3/uL (0.0-0.11); LYMPHOCYTES 16.9 %; LYMPHOCYTES ABSOLUTE 1.29 10/3/uL (0.67-4.30); MANUAL DIFF NO %; MEAN CORPUS HGB CONC 32.1 g/dL (32.0-36.0); MEAN CORPUSCULAR HEMOGLOB 25.2 pg (26.0-34.0); MEAN CORPUSCULAR VOLUME 78.7 fL (80-100); MEAN PLATELET VOLUME 11.5 fL (9.2-13.0); MONOCYTES 8.6 %; MONOCYTES ABSOLUTE 0.66 10/3/uL (0.21-1.20); NEUTROPHILS 71.6 %; NEUTROPHILS ABSOLUTE 5.46 10/3/uL (2.02-8.40); PLATELET COUNT 142 10/3/uL (150-400); RBC DISTRIBUTION WIDTH 17.3 % (12.0-16.0); RED CELL COUNT 3.33 10/6/uL (4.0-5.6); WHITE BLOOD CELLS 7.6 10/3/uL (4.5-10.5)
[2017-01-11 06:13] LABS: ALBUMIN 2.9 G/DL (3.5-5.0); BUN (BLOOD UREA NITROGEN) 53 MG/DL (6-23); CALCIUM, SERUM 8.6 MG/DL (8.5-10.4); CHLORIDE, SERUM 98 MMOL/L (96-112); CO2 (CARBON DIOXIDE) 27 MMOL/L (24-34); GFR AFRICAN AMERICAN 12 ML/MIN (>=60); GFR NON AFRICAN AMERICAN 10 ML/MIN (>=60); GLUCOSE, SERUM 126 MG/DL (60-99); PHOSPHORUS, SERUM 3.8 MG/DL (2.5-4.5); POTASSIUM, SERUM 3.9 MMOL/L (3.5-5.3); SODIUM, SERUM 137 MMOL/L (135-148)
[2017-01-11 06:17] LABS: PLATELET ESTIMATE ADQ (ADEQUATE); RBC MORPHOLOGY NORM (NORMAL)
[2017-01-12 09:01] LABS: BASOPHILS 0.2 %; BASOPHILS ABSOLUTE 0.02 10/3/uL (0.0-0.16); EOSINOPHILS 2.5 %; EOSINOPHILS ABSOLUTE 0.23 10/3/uL (0.0-0.53); HEMATOCRIT 25.6 % (36.0-48.0); IMMATURE GRANULOCYTES 0.3 %; IMMATURE GRANULOCYTES ABSOLUTE 0.03 10/3/uL (0.0-0.11); LYMPHOCYTES 16.9 %; LYMPHOCYTES ABSOLUTE 1.54 10/3/uL (0.67-4.30); MEAN CORPUS HGB CONC 31.3 g/dL (32.0-36.0); MEAN CORPUSCULAR HEMOGLOB 24.1 pg (26.0-34.0); MEAN CORPUSCULAR VOLUME 77.1 fL (80-100); MEAN PLATELET VOLUME 11.8 fL (9.2-13.0); MONOCYTES 6.3 %; MONOCYTES ABSOLUTE 0.57 10/3/uL (0.21-1.20); NEUTROPHILS 73.8 %; NEUTROPHILS ABSOLUTE 6.71 10/3/uL (2.02-8.40); PLATELET COUNT 129 10/3/uL (150-400); RBC DISTRIBUTION WIDTH 17.3 % (12.0-16.0); RED CELL COUNT 3.32 10/6/uL (4.0-5.6); WHITE BLOOD CELLS 9.1 10/3/uL (4.5-10.5)
[2017-01-12 09:03] LABS: MANUAL DIFF NO %
[2017-01-12 09:09] LABS: ALBUMIN 2.9 G/DL (3.5-5.0); BUN (BLOOD UREA NITROGEN) 73 MG/DL (6-23); CALCIUM, SERUM 8.7 MG/DL (8.5-10.4); CHLORIDE, SERUM 91 MMOL/L (96-112); CO2 (CARBON DIOXIDE) 25 MMOL/L (24-34); CREATININE 5.38 MG/DL (0.55-1.02); GFR AFRICAN AMERICAN 8 ML/MIN (>=60); GFR NON AFRICAN AMERICAN 7 ML/MIN (>=60); GLUCOSE, SERUM 150 MG/DL (60-99); PHOSPHORUS, SERUM 4.4 MG/DL (2.5-4.5); POTASSIUM, SERUM 4.4 MMOL/L (3.5-5.3); SODIUM, SERUM 130 MMOL/L (135-148)
[2017-01-12 09:21] LABS: ANISOCYTOSIS 1+ (5-10/OIF) (0-5/OIF); HYPOCHROMIA 1+ (3-10/OIF) (0-2/OIF); MICROCYTES 1+ (5-10/OIF) (0-5/OIF); PLATELET ESTIMATE SLT DEC (ADEQUATE)
[2017-01-12 09:23] LABS: ELLIPTOCYTES 1+ (3-10/OIF) (0-2/OIF); POIKILOCYTOSIS 1+ (5-10/OIF) (0-5/OIF)
[2017-01-13 05:48] LABS: ALBUMIN 3.1 G/DL (3.5-5.0); BUN (BLOOD UREA NITROGEN) 51 MG/DL (6-23); CALCIUM, SERUM 8.9 MG/DL (8.5-10.4); CHLORIDE, SERUM 95 MMOL/L (96-112); CHOL/HDL RATIO(NOT ORDER) 2.3 (0-5); CHOLESTEROL 90 MG/DL (< 200); CO2 (CARBON DIOXIDE) 22 MMOL/L (24-34); CREATININE 3.86 MG/DL (0.55-1.02); GFR AFRICAN AMERICAN 12 ML/MIN (>=60); GFR NON AFRICAN AMERICAN 11 ML/MIN (>=60); GLUCOSE, SERUM 121 MG/DL (60-99); HDL CHOLESTEROL 40 MG/DL (> 49); LDL CHOLESTEROL 27 MG/DL (< 130); NON-HDL CHOLESTEROL 50 MG/DL (< 160); PHOSPHORUS, SERUM 3.1 MG/DL (2.5-4.5); POTASSIUM, SERUM 4.1 MMOL/L (3.5-5.3); SODIUM, SERUM 131 MMOL/L (135-148); TRIGLYCERIDE 115 MG/DL (< 150)
[2017-01-13 05:49] LABS: TROPONIN I 0.06 NG/ML (<0.05)
[2017-01-13 05:51] LABS: BASOPHILS 0.2 %; BASOPHILS ABSOLUTE 0.03 10/3/uL (0.0-0.16); EOSINOPHILS ABSOLUTE 0.26 10/3/uL (0.0-0.53); HEMOGLOBIN 8.6 g/dL (12.0-16.0); IMMATURE GRANULOCYTES 0.2 %; IMMATURE GRANULOCYTES ABSOLUTE 0.03 10/3/uL (0.0-0.11); LYMPHOCYTES 10.1 %; LYMPHOCYTES ABSOLUTE 1.32 10/3/uL (0.67-4.30); MEAN CORPUS HGB CONC 31.9 g/dL (32.0-36.0); MEAN CORPUSCULAR HEMOGLOB 24.9 pg (26.0-34.0); MEAN PLATELET VOLUME 11.8 fL (9.2-13.0); MONOCYTES 8.9 %; MONOCYTES ABSOLUTE 1.16 10/3/uL (0.21-1.20); NEUTROPHILS 78.6 %; NEUTROPHILS ABSOLUTE 10.21 10/3/uL (2.02-8.40); RBC DISTRIBUTION WIDTH 17.5 % (12.0-16.0); RED CELL COUNT 3.46 10/6/uL (4.0-5.6)
[2017-01-13 05:53] LABS: MANUAL DIFF NO %; PLATELET COUNT 180 10/3/uL (150-400)
[2017-01-13 06:02] LABS: INTERNATIONAL NORMAL RATI 1.3 UNITS (-); PROTIME (NOT ORD) 15.6 SEC (12.0-14.5)
[2017-01-13 06:18] LABS: ANISOCYTOSIS 1+ (5-10/OIF) (0-5/OIF); PLATELET ESTIMATE ADQ (ADEQUATE)
[2017-01-13 06:19] LABS: STOMATOCYTES 1+ (3-10/OIF) (0-2/OIF)
== END 2017-01-13 20:11 | disposition hospice, inpatient (51) | DRG 280 ==
LOC: ER 09:50 → SDC/OF 13:47 → IMCU 16:34 → 2SO 01-05 17:22
PROVIDERS: Emergency Medicine; Internal Medicine Nephrology; Registered Nurse; Student in an Organized Health Care Education/Training Program
PROC: 5A1D60Z (ICD-10-PCS; 2017-01-03)
PROC: 4A023N7 Measurement of Cardiac Sampling and Pressure, Left Heart, Percutaneous Approach (ICD-10-PCS; principal; 2017-01-13)
PROC: B2151ZZ Fluoroscopy of Left Heart using Low Osmolar Contrast (ICD-10-PCS; 2017-01-13)
PROC: B2111ZZ Fluoroscopy of Multiple Coronary Arteries using Low Osmolar Contrast (ICD-10-PCS; 2017-01-13)
DX: I21.4 Non-ST elevation (NSTEMI) myocardial infarction (principal); J96.01 Acute respiratory failure with hypoxia; J96.02 Acute respiratory failure with hypercapnia; J81.1 Chronic pulmonary edema; I31.3 Pericardial effusion (noninflammatory); N18.6 End stage renal disease; I50.22 Chronic systolic (congestive) heart failure; I13.0 Hypertensive heart and chronic kidney disease with heart failure and stage 1 through stage 4 chronic kidney disease, or unspecified chronic kidney disease; R13.10 Dysphagia, unspecified; E11.22 Type 2 diabetes mellitus with diabetic chronic kidney disease; E78.00 Pure hypercholesterolemia, unspecified; Z51.5 Encounter for palliative care; I35.0 Nonrheumatic aortic (valve) stenosis; I73.9 Peripheral vascular disease, unspecified; D64.9 Anemia, unspecified; F32.9 Major depressive disorder, single episode, unspecified; R00.1 Bradycardia, unspecified; K58.9 Irritable bowel syndrome, unspecified; K76.0 Fatty (change of) liver, not elsewhere classified; Z99.2 Dependence on renal dialysis; Z88.5 Allergy status to narcotic agent; Z88.8 Allergy status to other drugs, medicaments and biological substances; Z88.1 Allergy status to other antibiotic agents; Z82.49 Family history of ischemic heart disease and other diseases of the circulatory system; Z87.891 Personal history of nicotine dependence
CPT/HCPCS: 36600; 71010; 80048; 80053; 80061; 80069; 82550; 82553; 82805; 82962; 83605; 83735; 83880; 84134; 84145; 84484; 85025; 85610; 85730; 87040; 87641; 93005; 93308; 93458; 94660; 96374; 96375; 97110-GO; 97162-GP; 97165-GO; 97530-GP; 97535-GO; 99152; 99285; A9270-GY; C1769; C1894; G0257; G8978-CL-GP; G8979-CK-GP; J0360; J2250; J2405; J3010; P9047; Q9967